=== PATIENT | male | born 1935 | race Caucasian/White ===

== ENCOUNTER 2016-06-12 14:41 | Inpatient (IN) | payer OTHER ==
--- NOTE | 2016-06-12 14:51 | EDPHY ---
H & P HPI/ROS: CHIEF COMPLAINT: Left-sided weakness, facial droop HISTORY OF PRESENT ILLNESS: 81-year-old male with a history of coronary artery disease and previous TIA presents with left-sided weakness and facial droop. At 2:00 p.m. he was in an office building, when he felt like he might faint. He developed a moderate left-sided Headache, associated with expressive aphasia. On switcher arrival, he had a left facial droop and was unable to ambulate because of left-sided weakness. The left-sided weakness involved his arm and his leg. The paramedics feel that he is improving somewhat and that his speech has cleared. Takes a baby aspirin daily. REVIEW OF SYSTEMS: Constitutional: No fever, no chills Eyes: No visual changes ENT: No sore throat Respiratory: No cough, no shortness of breath Cardiac: No chest pain Gastrointestinal: No nausea, no vomiting, no abdominal pain Genitourinary: No hematuria, no dysuria Musculoskeletal: No leg pain or swelling Skin: No rash Psychiatric: No depression Past Medical/Surgical History: Coronary artery disease TIA Dementia Social History: Smoking Status: Never smoked Physical Exam: General Appearance: Alert, answers questions appropriately, speech is slightly slurred Eyes: Pupils equal and round, no conjunctival pallor or injection ENT, Mouth: Mucous membranes moist Neck: Normal inspection Respiratory: Lungs are clear to auscultation Cardiovascular: Regular rate and rhythm Gastrointestinal: Abdomen is soft and nontender Neurological: alert, left sided facial weakness, forehead is spared, left upper and lower extremity weakness Skin: Warm and dry Extremities: Nontender, no pedal edema Psychiatric: Flat affect Constitutional: Initial Vital Signs Temperature (C) 36.6 C 06/12/16 15:03 Heart Rate 61 06/12/16 15:03 Respiratory Rate 16 06/12/16 15:03 Blood Pressure 162/123 H 06/12/16 15:03 O2 Sat (%) 96 06/12/16 15:03 O2 Delivery Mode Room Air O2 (L/minute) 2 Allergies/Adverse Reactions: codeine [Codeine] Allergy (Mild, Verified 06/12/10 12:06) haloperidol [From Haldol] Allergy (Verified 06/12/16 16:27) lisinopril Allergy (Verified 01/27/13 09:30) lorazepam [From Ativan] Allergy (Verified 06/12/16 16:27) Home Medications: Medication Instructions Recorded Cholecalciferol Vit D3 [Vitamin D3 2,000 units PO DAILY 06/16/14 (*)] FEXOFENADINE HCL 180 mg PO DAILY 06/16/14 Fluticasone Nasal [Flonase Nasal 1 sprays NASAL BID 06/16/14 [place]] Herbals/Supplements -Info Only 1 ea PO DAILY 06/16/14 Omeprazole [Prilosec 20 mg] 20 mg PO DAILY 06/16/14 Rosuvastatin Calcium [Crestor] 10 mg PO HS 06/16/14 Ascorbic Acid [Vitamin C] 500 mg PO BID 06/12/16 Aspirin [Aspirin 81mg (*)] 81 mg PO HS 06/12/16 Clopidogrel Bisulfate [Plavix (*)] 75 mg PO DAILY 06/12/16 Docusate Sodium [Colace 100 MG (*)] 100 mg PO HS 06/12/16 Donepezil HCl [Aricept 5 MG (*)] 5 mg PO DAILY 06/12/16 Isosorbide Mononitrate [Imdur 30 30 mg PO HS 06/12/16 mg (*)] Methenamine Belen [Hiprex 1 gm (*)] 1 gm PO BID 06/12/16 Metoprolol Tartrate [Metoprolol 25 mg PO BID 06/12/16 Tartrate] Mirabegron [Myrbetriq] 25 mg PO HS 06/12/16 clonazePAM [Clonazepam] 0.5 mg PO HS 06/12/16 Medical Decision Making - Diagnostics EKG Interpretation: EKG interpreted by me reveals first-degree AV block, rate 58, no ST or T segment changes. Imaging Results: Imaging Impressions Head CT 06/12/16 14:46 Impression: 1. Acute right frontal lobe intraparenchymal cortical and superficial white matter hemorrhage measuring 55 x 42 x 48 cm with mild mass effect and mild left subfalcine herniation. Differential diagnosis includes hemorrhage from anticoagulants, trauma, possible underlying neoplasm or AVM. 2. Recommend neurosurgery consult. 3. Consider follow-up MRI imaging if clinically indicated. Findings and recommendations discussed with Emergency Department physician, Юлия Rodgers, at 1455 hour, 06/12/2016. Final report concurs with initial preliminary interpretation. ED Course/Re-evaluation: On return from CT scan, he was more somnolent, speech was more slurred and he had increased left-sided weakness. A CT scan reveals a large right frontal hemorrhage. Neurosurgery consulted. He is on Plavix and aspirin. Desmopressin and platelets ordered. 3:30 p.m.-he continues to have worsening symptoms. He is still able to give a thumbs up with his right hand, but is not moving his left side at all. Multiple reassessments: slight worsening. DDAVP and plts IV given. Multiple discussions with the by me, Dr. Huerta and Dr. Hairston regarding the dire nature of the ICH. The pt's ultimately decided on comfort care only. The pt will be admitted to [facility]. This patient utilized 45 minutes of critical care time exclusive of unbundled procedures. Differential Diagnosis: Altered mental status including but not limited to hypoglycemia, infectious process, electrolyte abnormality, head injury and intoxicants. - Data Points Laboratory Results: Laboratory Results 06/12/16 14:54 06/12/16 14:54 06/12/16 06/12/16 06/12/16 14:57 14:57 14:54 WBC RBC Hgb POC Hgb Hct POC Hct MCV MCH MCHC RDW Plt Count MPV Neut % (Auto) Lymph % (Auto) [place] % (Auto) Eos % (Auto) Baso % (Auto) Nucleat RBC Rel Count Absolute Neuts (auto) Absolute Lymphs (auto) Absolute Monos (auto) Absolute Eos (auto) Absolute Basos (auto) Absolute Nucleated RBC Immature Gran % Immature Gran # POC Sodium Sodium 143 mEq/L mEq/L (134-144) POC Potassium Potassium 4.5 mEq/L mEq/L (3.5-5.2) POC Chloride Chloride 109 mEq/L mEq/L (97-110) Carbon Dioxide 24 mEq/l mEq/l (22-31) Anion Gap 10 mEq/L mEq/L (8-16) POC BUN BUN 25 mg/dL H mg/dL (7-23) Creatinine 1.3 mg/dL mg/dL (0.7-1.3) POC Creatinine Estimated GFR 53 Glucose 91 mg/dL mg/dL (70-100) POC Glucose Calcium 9.9 mg/dL mg/dL (8.5-10.4) Troponin I < 0.012 ng/mL ng/mL (0-0.034) Patient ABO/Rh A POSITIVE 06/12/16 06/12/16 14:54 14:43 WBC 5.27 10^3/uL 10^3/uL (3.80-9.50) RBC 4.74 10^6/uL 10^6/uL (4.40-6.38) Hgb 15.1 g/dL g/dL (13.7-17.5) POC Hgb 15.0 gm/dL gm/dL (14.5-17.3) Hct 44.2 % % (40.0-51.0) POC Hct 44 % % (42.8-50.6) MCV 93.2 fL fL (81.5-99.8) MCH 31.9 pg pg (27.9-34.1) MCHC 34.2 g/dL g/dL (32.4-36.7) RDW 13.5 % % (11.5-15.2) Plt Count 281 10^3/uL 10^3/uL (150-400) MPV 9.8 fL fL (8.7-11.7) Neut % (Auto) 61.8 % % (39.3-74.2) Lymph % (Auto) 26.2 % % (15.0-45.0) [place] % (Auto) 8.7 % % (4.5-13.0) Eos % (Auto) 2.5 % % (0.6-7.6) Baso % (Auto) 0.6 % % (0.3-1.7) Nucleat RBC Rel Count 0.0 % % (0.0-0.2) Absolute Neuts (auto) 3.26 10^3/uL 10^3/uL (1.70-6.50) Absolute Lymphs (auto) 1.38 10^3/uL 10^3/uL (1.00-3.00) Absolute Monos (auto) 0.46 10^3/uL 10^3/uL (0.30-0.80) Absolute Eos (auto) 0.13 10^3/uL 10^3/uL (0.03-0.40) Absolute Basos (auto) 0.03 10^3/uL 10^3/uL (0.02-0.10) Absolute Nucleated RBC 0.00 10^3/uL 10^3/uL (0-0.01) Immature Gran % 0.2 % % (0.0-1.1) Immature Gran # 0.01 10^3/uL 10^3/uL (0.00-0.10) POC Sodium 146 mEq/L H mEq/L (134-144) Sodium POC Potassium 4.2 mEq/L mEq/L (3.3-5.0) Potassium POC Chloride 109 mEq/L H mEq/L (96-108) Chloride Carbon Dioxide Anion Gap POC BUN 29 mg/dL H mg/dL (7-23) BUN Creatinine POC Creatinine 1.3 mg/dL mg/dL (0.8-1.5) Estimated GFR Glucose POC Glucose 96 mg/dL mg/dL (70-100) Calcium Troponin I Patient ABO/Rh Medications Given: Discontinued Medications Desmopressin Acetate 20 mcg/ (Sodium Chloride) 55 mls @ 100 mls/hr IV ONCE ONE Stop: 06/12/16 15:28 Last Admin: 06/12/16 15:25 Dose: 55 mls Labetalol HCl (Labetalol Hcl) 10 mg IVP ONCE ONE Stop: 06/12/16 15:22 Last Admin: 06/12/16 15:26 Dose: 10 mg Ondansetron HCl (Zofran) 4 mg IVP EDNOW ONE Stop: 06/12/16 15:22 Last Admin: 06/12/16 15:25 Dose: 4 mg Point of Care Test Results: 06/12/16 14:43 POC Sodium 146 H POC Potassium 4.2 POC Chloride 109 H POC BUN 29 H POC Creatinine 1.3 POC Glucose 96 Departure - Departure Disposition: [facility] Inpatient Acute Clinical Impression: Intracranial hemorrhage Condition: Serious
[2016-06-12] MEDS ORDERED: DESMOPRESSIN ACETATE 20 MCG in NS 50 ML IV ONE (14:56)
[2016-06-12 14:59] LABS: % IMMATURE GRANULYOCYTES 0.2 % (0.0-1.1); ABSOLUTE IMMATURE GRANULOCYTES 0.01 10^3/uL (0.00-0.10); ADD DIFF? NO; ADD MORPH? NO; ADD SCAN? NO; ATYPICAL LYMPHOCYTE FLAG 10 (0-99); FRAGMENT RBC FLAG 0 (0-99); HEMATOCRIT 44.2 % (40.0-51.0); HEMOGLOBIN 15.1 g/dL (13.7-17.5); LEFT SHIFT FLG 0 (0-99); LIPEMIA HEMOLYSIS FLAG 90 (0-99); MEAN CELL HEMOGLOBIN 31.9 pg (27.9-34.1); MEAN CELL HEMOGLOBIN CONCENTR. 34.2 g/dL (32.4-36.7); MEAN CELL VOLUME 93.2 fL (81.5-99.8); MEAN PLATELET VOLUME 9.8 fL (8.7-11.7); PLATELET CLUMPS FLAG 10 (0-99); PLATELET COUNT 281 10^3/uL (150-400); RED BLOOD CELL COUNT 4.74 10^6/uL (4.40-6.38); RED CELL DISTRIBUTION WIDTH 13.5 % (11.5-15.2)
[2016-06-12] MEDS ORDERED: ONDANSETRON 4 MG/2 ML VIAL ONE (15:00)
--- NOTE | 2016-06-12 15:05 | CPEKG ---
Heart Rate: 58 RR Interval: 1034 P-R Interval: 228 QRSD Interval: 102 QT Interval: 412 QTC Interval: 405 P [place]: 14 QRS [place]: 17 T Wave [place]: 61 EKG Severity - ABNORMAL ECG - EKG Impression: SINUS RHYTHM EKG Impression: FIRST DEGREE AV BLOCK Electronically Signed By: Юлия Rodgers 12-Jun-2016 17:57:16
[2016-06-12] MEDS ORDERED: LABETALOL HCL 5 MG/ML 20 ML MDV ONE (15:19)
[2016-06-12] MEDS ORDERED: ONDANSETRON 4 MG/2 ML VIAL IVP ONE (15:21)
[2016-06-12] MEDS ORDERED: LABETALOL HCL 50 MG/10 ML SYR IVP ONE (15:21)
[2016-06-12 15:30] LABS: ANION GAP 10 mEq/L (8-16); CALCIUM 9.9 mg/dL (8.5-10.4); CARBON DIOXIDE 24 mEq/l (22-31); CHLORIDE 109 mEq/L (97-110); CREATININE 1.3 mg/dL (0.7-1.3); GLOMERULAR FILTRATION RATE 53; GLUCOSE 91 mg/dL (70-100); POTASSIUM 4.5 mEq/L (3.5-5.2); SODIUM 143 mEq/L (134-144)
[2016-06-12] MEDS ORDERED: ACETAMINOPHEN 325 MG TAB PO PRN (15:40)
[2016-06-12] MEDS ORDERED: ATROPINE 1% 5 ML OPHT.BTL SL PRN (15:40)
[2016-06-12] MEDS ORDERED: LORazepam 2 MG/ML INJ IVP PRN (15:40)
[2016-06-12] MEDS ORDERED: GLYCOPYRROLATE 0.2 MG/1 ML VIAL IVP/IM PRN (15:40)
[2016-06-12] MEDS ORDERED: BISACODYL 10 MG SUPP PR PRN (15:40)
[2016-06-12] MEDS ORDERED: ACETAMINOPHEN 650 MG SUPP PR PRN (15:40)
[2016-06-12] MEDS ORDERED: HALOPERIDOL LACT 5 MG/ML INJ IVP PRN (15:40)
[2016-06-12] MEDS ORDERED: ONDANSETRON 4 MG/2 ML VIAL IVP PRN ×2 (15:40)
[2016-06-12] MEDS ORDERED: morphINE 10 MG/0.5 ML UDSYR SL PRN (15:40)
[2016-06-12] MEDS ORDERED: ONDANSETRON DISINTEGRATING 4 MG TAB PO PRN (15:40)
[2016-06-12] MEDS ORDERED: ALBUTEROL 3 ML DEYVIAL IH PRN (15:40)
--- NOTE | 2016-06-12 17:19 | GHP ---
[f rep st] HISTORY AND PHYSICAL DATE OF ADMISSION: 06/12/2016 CHIEF COMPLAINT: Altered mental status and left-sided hemiparesis. HISTORY OF PRESENT ILLNESS: The patient is an 81-year-old male with a history of coronary artery disease and prior TIA on dual antiplatelet therapy who presents to the emergency department via EMS as a stroke alert. He was feeling well this morning, according to his . He went to a professional conference , and he was noted by his colleagues to be very quiet at the end of the day. He then developed obvious aphasia and altered mentation, and EMS was called. His condition worsened with a completely flaccid left side. This briefly improved, though, upon arrival to the emergency department, he has complete left -sided hemiparesis and profound aphasia. He is minimally verbal, though does follow basic commands. CT imaging in the emergency department revealed a large, right-sided hemorrhagic stroke. Neursurgery consulted in the emergency department, and his is at the bedside. He was ultimately admitted for comfort care. PAST MEDICAL AND SURGICAL HISTORY: 1. Coronary artery disease, status post stenting over 10 years ago. 2. Hyperlipidemia. 3. Dementia. 4. History of back surgery. 5. History of a TURP. 6. Osteoarthritis. 7. History of TIA. MEDICATIONS: Please see garbs for complete updated outpatient medication list. ALLERGIES: Include codeine and lisinopril. FAMILY HISTORY: His father of a stroke in his 70s. SOCIAL HISTORY: His reports he has been a lifetime nonsmoker and denies alcohol. 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 He has been to his for 53 years. REVIEW OF SYSTEMS: A 10-point review of systems is performed and is negative except as per HPI. OBJECTIVE: VITAL SIGNS: Temperature is 36.9, blood pressure 162/123, although blood pressure during my evaluation was 199/167. Heart rate 61, respiratory rate 16. He is 98% on 2 L. GENERAL: The patient is somnolent. He does open his eyes to verbal stimuli and follows basic commands. HEENT: Head is atraumatic, normocephalic. Pupils are equal, round, and reactive to light. Oropharynx is clear. Mucous membranes are dry. NECK: Supple. There is no JVD. HEART: Regular rate and rhythm. LUNGS: Coarse bilaterally. ABDOMEN: Soft, nondistended, nontender. EXTREMITIES: Warm, well perfused, without cyanosis, clubbing, or edema. NEUROLOGIC: He has complete left-sided hemiparesis with a left facial droop. He is unable to move his left upper or left lower extremity. He is able to tell me his first name, though has markedly slurred speech and is unable to form a sentence. His mentation waxes and wanes. LABORATORY DATA: He has a normal CBC. Metabolic panel is remarkable for a BUN of 25, creatinine of 1.3. No INR was drawn. Head CT shows an acute right frontal lobe intraparenchymal cortical and superficial white matter hemorrhage, measuring 55 x 42 x 48 mm with mild effect and mild left subfalcine herniation. EKG shows normal sinus rhythm with first-degree AV block. No ST-segment or T- wave elevation suggestive of acute ischemia. ASSESSMENT AND PLAN: This is an 81-year-old male with a history of coronary artery disease, prior transient ischemic attack on dual antiplatelet therapy who is admitted to the hospital with a large right-sided hemorrhagic stroke. 1. Hemorrhagic stroke. Goals of care were discussed with his who is present at the bedside. She notes he would not wish to be intubated and ventilated if he has a poor neurologic prognosis. Discussed the case with Dr. Hairston, neurosurgery, who notes a poor prognosis in terms of neurologic function. He will be admitted to comfort care. Obviously, his antiplatelet therapy and all other oral medications will be held. Comfort care measures are ordered. I will also request a spiritual and palliative care consult for family support. He will be kept n.p.o. Speech evaluation will be performed to determine if at any point he becomes safe to take oral intake. Otherwise, we will defer further blood draws or aggressive blood pressure management. The patient is DNR, comfort care measures as above. DISPOSITION: Patient admitted to inpatient status given his acute large right hemorrhagic stroke. /[id number]/MODL MTDD
--- NOTE | 2016-06-12 18:54 | GCON ---
[f rep st] CONSULTATION NEUROSURGICAL EMERGENCY ROOM CONSULT DATE OF CONSULTATION: 06/12/2016 CHIEF COMPLAINT: The patient is an 81-year-old male with intracranial hemorrhage. HISTORY OF PRESENT ILLNESS: The patient was reportedly in his normal state of health with a history of coronary artery disease, status post stenting, and on Plavix and aspirin. He was at a meeting today and suddenly became very quiet, and then developed speech difficulty and left upper extremity weakness. Emergency medical services were activated, and he was taken to [facility] emergency room, where a CT scan of the brain demonstrated an intracranial hemorrhage. He presents now for neurosurgical consultation. PAST MEDICAL AND SURGICAL HISTORY: Coronary artery disease, status post stenting, early dementia, hypertension. MEDICATIONS ON ADMISSION: Aricept, Plavix, metoprolol, vitamin C, krill oil, Co -Q10, vitamin D3, probiotics, Prilosec, turmeric, Flonase, Crestor, clonazepam, isosorbide mono ER, Myrbetriq, aspirin, stool softener, Flonase. DRUG ALLERGIES: Codeine makes his nose itch. FAMILY HISTORY: Significant for his sister recently dying of stroke. She was 88 years old. SOCIAL HISTORY: The patient has been for 58 years and has 4 children. He does not drink or smoke. GENERAL MEDICAL EXAMINATION: LUNGS: Clear. CARDIOVASCULAR: Examination reveals regular rate and rhythm. NEUROLOGIC: The patient is asleep on 100% face mask O2 and awakens to peripheral stimuli. He opens his eyes to painful stimuli. He follows commands on the right. He has 0/5 strength in the left upper extremity and 1/5 in the left lower extremity. His reflexes are depressed throughout. DIAGNOSTIC STUDIES: CT scan of the brain demonstrates a very large right frontotemporal parenchymal hemorrhage with significant mass effect, but no hydrocephalus or edema in the basal cisterns. IMPRESSION/RECOMMENDATIONS: This is an 81-year-old man with a basically a very large right frontoparietal hemorrhagic stroke. He has a Harmony Coma Scale of about 11 and will very soon need to have his airway protected, if aggressive measures were pursued. After discussing the situation with the in great detail, he has advanced directives and under such circumstances, with a very poor prognosis, he does not wish to be intubated and wishes to be a DNR status. We will admit him to the medical surgical floor with comfort measures only. /[id number]/MODL MTDD
[2016-06-12 20:28] VITALS: RESP 15
[2016-06-12] MEDS ORDERED: GLYCOPYRROLATE 0.2 MG/1 ML VIAL IVP PRN (21:19)
--- NOTE | 2016-06-13 07:07 | SOAPPROG ---
SOAP Progress Note Assessment/Plan: Assessment: 81 yo M with large right frontal ICH on plavix/asa Plan: neuro: pt is comfort care only getting morphine, pt looks comfort able discussed situation with will sign off, please call with questions 06/13/16 07:05 Subjective: chart reviewed, situation discussed with Objective: Vital Signs Temp Pulse Resp BP Pulse Ox 36.8 C 100 15 155/61 H 98 06/12/16 20:25 06/13/16 02:03 06/12/16 20:25 06/13/16 02:03 06/12/16 20:25 06/12/16 06/13/16 06/14/16 05:59 05:59 05:59 Intake Total 150 Balance 150 no response to verbal stimuli, some grimace with aggressive tactile stimuli Pupils: right 4 mm, left 2 mm left facial droop ICD10 Worksheet Patient Problems: Problems Problem Status Onset Intracranial hemorrhage Acute TIA (transient ischemic attack) Acute
[2016-06-13 08:03] VITALS: BP 164/65; PULSE 105; TEMP 98.6; O2SAT 95
--- NOTE | 2016-06-13 13:08 | HOSPPROG ---
Hospitalist Progress Note Assessment/Plan: 81 yo M w large R frontal intraparenchymal hemorrhage bleed: seen by neurosurgery dismal neurologic prognosis no intervention plan of care: hospice code: dnr comfort: written for morphine and ativan proph: no VTE proph Subjective: family at bedside, questions answered. CT w large R frontal bleed. interp by me Objective: Vital Signs Temp Pulse Resp BP Pulse Ox 37.0 C 105 H 15 164/65 H 95 06/13/16 08:00 06/13/16 08:00 06/12/16 20:25 06/13/16 08:00 06/13/16 08:00 06/12/16 06/13/16 06/14/16 05:59 05:59 05:59 Intake Total 150 Balance 150 - Physical Exam Constitutional: other (unresponsive) Eyes: anicteric sclera Ears, Nose, Mouth, Throat: ears appear normal Cardiovascular: regular rate and rhythym, no murmur, rub, or gallop Respiratory: no respiratory distress, no rales or rhonchi Gastrointestinal: normoactive bowel sounds Genitourinary: No huizar in urethra Skin: warm, normal color Musculoskeletal: No full muscle strength Neurologic: No AAOx3 Psychiatric: No interacting appropriately Lymph, Heme, Immunologic: no cervical LAD ICD10 Worksheet Patient Problems: Problems Problem Status Onset Intracranial hemorrhage Acute TIA (transient ischemic attack) Acute
--- NOTE | 2016-06-13 14:17 | GDS ---
[f rep st] DISCHARGE SUMMARY DISCHARGE DIAGNOSES: 1. Large right frontal intraparenchymal hemorrhage. 2. Coronary artery disease on dual antiplatelet therapy. 3. Hyperlipidemia. 4. Mild dementia. HOSPITAL COURSE: Please see admission history and physical by Dr. Orly Huerta. The patient prese nted with aphasia followed by altered mentation and flaccid left hemiparesis. The CT scan confirmed acute right frontal intraparenchymal cortical and subcortical white matter hemorrhage measuring 55 x 42 x 48 mm with mass effect and mild left subfalcine herniation. He was seen by Neurosurgery, rec ommended no intervention, and confirmed dismal neurologic prognosis. The patient is transferred to hospice today. /[id number]/MODL
--- NOTE | 2016-06-13 19:04 | PDPCPN ---
Palliative Care Progress Note Assessment/Plan: Referring provider: Dr Huerta Reason for consult: Actively dying Complex medical decision making Symptom control HPI: Hi Perez (Bob) is a 81 yo male with PMH dementia, CAD, and previous TIA admitted to the hospital for aphasia, alerted mental status and left sided weakness. Ct head with right frontal lobe bleed and mild mass effect. Clinical status worsened in the ED and decision was made to focus only on comfort care. Palliative care consulted for complex medical decision making. Met with , daughters and DIL at the bedside. The family shared that Elton has been retired for about 10 years but he "did not do well" with [employer] and was always seeking opportunities to do work. 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 They feel his wishes are to not live in a permanently vegetative state and he would want comfort measures only at this time. We spoke of unknown life expectancy but likely days. Discussed hospice as a way to continue to care for someone at the end of life. They prefer to stay local in [place] and referral made to [facility]. Assessment: Physical: - Pain: headache - follow non verbal pain score - morphine PRN - might consider drip for continued relief - Dyspnea: - opiates as above - oxygen if needed for comfort Emotional/psychological: non responsive Advanced Care Planning: Is patient decisional?: No Code Status: DNR/DNI MD VALLE: Lu is MDPOA. Plan: Comfort care only. Work on transition to [facility] care center for continued end of life care. 06/14/16 15:46 Subjective: obtunded, unable to obtain Objective: Social History: to Lu for 58 years. 4 children, 3 daughters alive and local. Medication list reviewed ROS: unable to obtain, obtunded. Functional assessment: PPS: 20% Functional status: dependent on ADLs, IADLs Vital Signs Temp Pulse Resp BP Pulse Ox 37.0 C 105 H 15 164/65 H 95 06/13/16 08:00 06/13/16 08:00 06/12/16 20:25 06/13/16 08:00 06/13/16 08:00 06/12/16 06/13/16 06/14/16 05:59 05:59 05:59 Intake Total 150 Balance 150 Physical Exam - Physical Exam General Appearance: no apparent distress, other (obtunded) Respiratory: No respiratory distress, No accessory muscle use Skin: normal color, warm/dry Extremities: No pedal edema Neuro/Psych: other (obtunded. did not respond to commands) ICD10 Worksheet Patient Problems: Problems Problem Status Onset Intracranial hemorrhage Acute Palliative care encounter Acute TIA (transient ischemic attack) Acute - ICD10 Problem Qualifiers (1) Palliative care encounter
== END 2016-06-13 16:30 | disposition hospice, home (50) | DRG 65 ==
LOC: EDUNIT# → F2N 17:18
PROVIDERS: ADMIT Hospitalist; ATTEND Internal Medicine
PROC: 30233R1 Transfusion of Nonautologous Platelets into Peripheral Vein, Percutaneous Approach (ICD-10-PCS; principal; 2016-06-12)
DX: I61.1 Nontraumatic intracerebral hemorrhage in hemisphere, cortical (principal); G81.94 Hemiplegia, unspecified affecting left nondominant side; R47.01 Aphasia; R29.810 Facial weakness; I25.10 Atherosclerotic heart disease of native coronary artery without angina pectoris; E78.5 Hyperlipidemia, unspecified; F03.90 Unspecified dementia, unspecified severity, without behavioral disturbance, psychotic disturbance, mood disturbance, and anxiety; R40.2422 Glasgow coma scale score 9-12, at arrival to emergency department; Z79.02 Long term (current) use of antithrombotics/antiplatelets; Z79.82 Long term (current) use of aspirin; Z95.5 Presence of coronary angioplasty implant and graft; Z66 Do not resuscitate
CPT/HCPCS: 82947-QW; 96374; J2405; J2597; J3490; P9035